=== PATIENT | female | born 1955 | race Caucasian/White ===

== ENCOUNTER 2022-05-03 08:54 | Day surgery (SDC) | payer MEDICARE ==
[2022-04-25 16:42] VITALS: BMI 25.7
[2022-05-03 11:47] VITALS: PULSE 60; TEMP 97.9
[2022-05-03 12:22] VITALS: BP 108/61; RESP 18
== END 2022-05-03 12:30 | disposition home or self-care (01) ==
LOC: FASU-ENDO 08:54
PROVIDERS: ATTEND Internal Medicine Gastroenterology
PROC: 0DBN8ZX Excision of Sigmoid Colon, Via Natural or Artificial Opening Endoscopic, Diagnostic (ICD-10-PCS; 2022-05-03)
PROC: 0DBM8ZX Excision of Descending Colon, Via Natural or Artificial Opening Endoscopic, Diagnostic (ICD-10-PCS; principal; 2022-05-03 11:00)
DX: Z12.11 Encounter for screening for malignant neoplasm of colon (principal); D12.7 Benign neoplasm of rectosigmoid junction; K63.5 Polyp of colon; K57.30 Diverticulosis of large intestine without perforation or abscess without bleeding; K64.1 Second degree hemorrhoids
CPT/HCPCS: 88305-TC